=== PATIENT | male | born 1950 | race Caucasian/White ===

== ENCOUNTER 2017-01-14 11:10 | Emergency (ER) | payer OTHER ==
[~2017-01-14] VITALS: Ht 177.8 cm; Wt 112.5 kg
[~2017-01-14 11:10] MED LIST: AMLO-218 PO; ASPI81TA3 PO; ATEN-51 PO; ATOR40TA68 PO; BENA40TA41 PO
[2017-01-14 11:38] VITALS: Ht 177.8 cm; Wt 112.5 kg
[2017-01-14] MEDS ORDERED: SODI126M NASAL (12:50)
[2017-01-14] MEDS ORDERED: AMLODIPINE 10 MG TAB PO ONE (13:00)
--- NOTE | 2017-01-14 13:31 | ERD ---
ER Documentation Chief Complaint Date/Time DATE: 01/14/17 TIME: 13:11 Chief Complaint NOSEBLEED SINCE THIS MORNING AT 0500. PT TAKES DAILY ASPIRIN/NO THINNERS. HPI 66-year-old male presented ED with epistaxis 5 hours. He is unable to stop the bleeding at home. He was given nose clamp by triage. The bleeding has stopped now. Patient stated that he is taking 81 mg aspirin daily, but no other anticoagulants. History of hypertension, is taking amlodipine, benazepril , and hydrochlorothiazide for blood pressure. Denies head or facial trauma. Denies headache or dizziness. ROS All systems reviewed and are negative except as per history of present illness. Medications Home Meds Active Scripts Sodium Chloride (Saline Nasal Mist) 126 Ml Mist, 1 SPRAY NASAL Q6, #1 BOTTLE Prov:EVARISTOPROSPER X. WORM GROWER 01/14/17 Reported Medications Atorvastatin* (Atorvastatin*) 40 Mg Tablet, 40 MG PO HS, TAB 07/18/14 Atenolol* (Atenolol*) 25 Mg Tablet, 25 MG PO DAILY, TAB 07/18/14 Amlodipine Besylate* (Norvasc*) 10 Mg Tablet, 10 MG PO DAILY, TAB 07/18/14 Benazepril Hcl* (Benazepril Hcl*) 40 Mg Tablet, 40 MG PO DAILY, TAB 07/18/14 Aspirin* (Aspirin* Chew) 81 Mg Tab.chew, 81 MG PO DAILY, TAB.CHEW 07/18/14 Allergies Allergies: Coded Allergies: No Known Drug Allergies (Verified Allergy, Unknown, 07/18/14) PMhx/Soc History of hypertension and high cholesterol History of Surgery: No Anesthesia Reaction: No Hx Neurological Disorder: No Hx Respiratory Disorders: No Hx Psychiatric Problems: No Hx Miscellaneous Medical Probl: No Hx Alcohol Use: No Hx Substance Use: No Hx Tobacco Use: No Smoking Status: Never smoker Physical Exam Vitals Vital Signs Date Time Temp Pulse Resp B/P Pulse Ox O2 Delivery O2 Flow Rate FiO2 01/14/17 11:38 99.1 101 20 196/96 100 Physical Exam General impression: Well-developed, well-nourished. Alert, oriented, in no acute distress Head: Normocephalic, atraumatic. Eyes: PERRL, EOM normal. Sclerae are normal. Conjunctiva not injected. ENT: No active bleeding noted in the nasal mucosa. Oral mucosa and oropharynx are normal. Neck: Supple, nontender. No lymphadenopathy. No nuchal rigidity. Respiration: Normal respiratory effort. Lungs clear to auscultate bilaterally. No wheezes, rales or rhonchi. Cardiovascular: Regular rate and rhythm. No murmurs or extra heart sounds. Abdomen: Abdomen normal to inspection. Nontender. No masses or organomegaly. Bowel sounds normal. Back: Normal to inspection. No midline spine tenderness. No CVA tenderness. Extremities: Extremities normal to inspection, nontender. ROM normal. Neuro: Mental status normal, speech normal. C[employer]IST grossly intact. Skin: Normal turgor. No rash or lesions. Psych: Normal mood and affect. Results 24 hrs Current Medications Medications (Trade) Dose Ordered Sig/Jenn Route PRN Reason Start Time Stop Time Status Last Admin Dose Admin Amlodipine Besylate (Norvasc) 10 mg ONCE ONCE PO 01/14/17 13:00 01/14/17 13:01 DC Procedures/MDM Well-appearing 66-year-old male presents to ED was epistaxis. The epistaxis has resolved at this time. I have educated patient on methods to stop the epistaxis at home. Patient's blood pressure noted to be elevated at 196/96, likely contributed to his epistaxis. He took benazepril and hydrochlorothiazide this morning. I gave him 10 milligram of amlodipine tablet in the ED. His BP reduced to 162/92 after amlodipine. Patient advised to follow-up with his PCP for blood pressure monitor and medication adjustment. Patient appears well, stable for discharge and outpatient management. Medical decision making shared with patient and family. Education provided to patient and family. Patient and family expressed understanding of the plan. Medications on discharge: Saline nasal spray. Follow-up: Primary care provider in 2-3 days or return to ED if worse. Departure Diagnosis: Primary Impression: Epistaxis Additional Impression: Hypertension Hypertension type: essential hypertension Qualified Code: I10 - Essential hypertension Condition: Good Patient Instructions: High Blood Pressure (Hypertension), Epistaxis (Adult) Referrals: COMMUNITY CLIN[facility] YOU HAVE RECEIVED A MEDICAL SCREENING EXAM AND THE RESULTS INDICATE THAT YOU DO NOT HAVE A CONDITION THAT REQUIRES URGENT TREATMENT IN THE EMERGENCY DEPARTMENT. FURTHER EVALUATION AND TREATMENT OF YOUR CONDITION CAN WAIT UNTIL YOU ARE SEEN IN YOUR DOCTORS OFFICE WITHIN THE NEXT 1-2 DAYS. IT IS YOUR RESPONSIBILITY TO MAKE AN APPOINTMENT FOR FOLOW-UP CARE. IF YOU HAVE A PRIMARY DOCTOR --you should call your primary doctor and schedule an appointment IF YOU DO NOT HAVE A PRIMARY DOCTOR YOU CAN CALL OUR PHYSICIAN REFERRAL HOTLINE AT IF YOU CAN NOT AFFORD TO SEE A PHYSICIAN YOU CAN CHOSE FROM THE FOLLOWING PS[facility]IATRIC HOSPITAL CLINICS [facility] [address] [facility]. [facility] [address] [facility] [address] [facility] [facility] [address] [facility]. [facility] [address] [facility]. [facility] [address] Additional Instructions: Call your primary care doctor TOMORROW for an appointment during the next 2-3 days.See the doctor sooner or return here if your condition worsens before your appointment time. PROSPER LOERA NP Jan 14, 2017 13:25
== END 2017-01-14 12:51 | disposition home or self-care (01) ==
LOC: FTE 11:10
DX: R04.0 Epistaxis (principal); I10 Essential (primary) hypertension; Z79.82 Long term (current) use of aspirin
CPT/HCPCS: Z7502; Z7610; 99283